=== PATIENT | male | born 1970 | race Caucasian/White ===

== ENCOUNTER 2017-10-13 16:46 | Emergency (ER) | payer MEDICAID, OTHER ==
[2017-10-13] MEDS: SOD CHLORIDE 0.9% 500 ML IV (16:49)
[2017-10-13] MEDS: ASPIRIN 325 MG TAB PO (16:49)
[2017-10-13] MEDS: ADENOSINE 3 MG/ML SYRINGE IV (17:21)
[2017-10-13] MEDS: DILTIAZEM 25 MG INJ IV (17:21)
[2017-10-13] MEDS: ONDANSETRON 4 MG INJ IV (17:40)
[2017-10-13] MEDS: ETOMIDATE 20 MG INJ IV (17:41)
[2017-10-13 17:42] LABS: ADD MAN DIFF? NO
[2017-10-13 17:45] LABS: BASOPHIL # 0.1 10^3/ul (0.0-0.1); BASOPHILS % 0.6 % (0.0-2.0); EOSINOPHILS # 0.1 10^3/ul (0.0-0.5); EOSINOPHILS % 1.3 % (0.0-7.0); HEMATOCRIT 44.5 % (42.0-52.0); HEMOGLOBIN 15.2 g/dl (14.0-18.0); LYMPHOCYTES # 2.6 10^3/ul (0.8-2.9); LYMPHOCYTES % 31.1 % (15.0-51.0); MEAN CORPUSCULAR HEMOGLOBIN 29.4 pg (29.0-33.0); MEAN CORPUSCULAR HGB CONC 34.2 g/dl (32.0-37.0); MEAN CORPUSCULAR VOLUME 86.1 fl (82.0-101.0); MEAN PLATELET VOLUME 9.9 fl (7.4-10.4); MONOCYTE # 1.2 10^3/ul (0.3-0.9); MONOCYTES % 13.9 % (0.0-11.0); NEUTROPHIL # 4.4 10^3/ul (1.6-7.5); PLATELET COUNT 300 10^3/UL (140-415); RED BLOOD COUNT 5.17 10^6/ul (4.70-6.10); RED CELL DISTRIBUTION WIDTH 12.4 % (11.5-14.5)
[2017-10-13 17:45] LABS: WHITE BLOOD COUNT 8.3 10^3/ul (4.8-10.8)
[2017-10-13 17:53] LABS: ANION GAP 16 (8-16); BLOOD UREA NITROGEN 21 mg/dl (7-20); CALCIUM 9.5 mg/dl (8.4-10.2); CARBON DIOXIDE 30 mmol/L (21-31); CHLORIDE 105 mmol/L (97-110); CREATININE 1.08 mg/dl (0.61-1.24); GLUCOSE 76 mg/dl (70-220); POTASSIUM 3.7 mmol/L (3.5-5.1); SODIUM 147 mmol/L (135-144)
[2017-10-13] MEDS: FENTAnyl 50 MCG/ML VIAL IV (18:01)
[2017-10-13] MEDS: MIDAZOLAM 1 MG/ML 5 ML INJ IV (18:01)
[2017-10-13] MEDS: MIDAZOLAM 1 MG/ML 2 ML INJ IV (18:01)
[2017-10-13 18:03] LABS: TROPONIN-I 0.028 ng/ml (0.00-0.12)
== END 2017-10-13 18:45 | disposition left against medical advice (07) ==
LOC: E/R 16:46
DX: I47.1 Supraventricular tachycardia (principal); I48.91 Unspecified atrial fibrillation; F17.210 Nicotine dependence, cigarettes, uncomplicated; R40.2142 Coma scale, eyes open, spontaneous, at arrival to emergency department; R40.2252 Coma scale, best verbal response, oriented, at arrival to emergency department; R40.2362 Coma scale, best motor response, obeys commands, at arrival to emergency department; Z79.82 Long term (current) use of aspirin
CPT/HCPCS: 36415; 71045; 80048; 84484; 85025; 93005; 96374; 96375; 99291-25

== ENCOUNTER 2017-12-15 15:14 | Emergency (ER) | payer MEDICAID | END 2017-12-15 15:48 | disposition home or self-care (01) | LOC: E/R 15:14 | DX: I47.1 Supraventricular tachycardia (principal); F15.10 Other stimulant abuse, uncomplicated; F17.210 Nicotine dependence, cigarettes, uncomplicated; Z79.82 Long term (current) use of aspirin | CPT/HCPCS: 93005; 99283-25 ==

== ENCOUNTER 2018-02-25 18:48 | Emergency (ER) | payer SELFPAY, OTHER, MEDICAID ==
[2018-02-25] MEDS ORDERED: DILTIAZEM 25 MG INJ (18:59)
[2018-02-25] MEDS: DILTIAZEM 25 MG INJ IV (18:59)
[2018-02-25] MEDS: LACTATED RINGER'S 1,000 ML IV (19:02)
[2018-02-25] MEDS: ADENOSINE 6 MG INJ IV (19:22)
[2018-02-25] MEDS: SOD CHLORIDE 0.9% 1,000 ML IV (19:22)
[2018-02-25] MEDS ORDERED: ADENOSINE 3 MG/ML SYRINGE IV (19:30)
[2018-02-25] MEDS: LORAZEPAM 2 MG INJ IV (19:31)
== END 2018-02-25 19:37 | disposition left against medical advice (07) ==
LOC: E/R 19:37
DX: I47.1 Supraventricular tachycardia (principal); F15.10 Other stimulant abuse, uncomplicated; F17.210 Nicotine dependence, cigarettes, uncomplicated; Z79.82 Long term (current) use of aspirin
CPT/HCPCS: 71045; 93005; 96374; 96375; 99285-25